=== PATIENT | female | born 1960 | race Caucasian/White ===

== ENCOUNTER 2019-07-04 14:06 | Emergency (ER) | payer OTHER ==
--- NOTE | 2019-07-04 15:15 | XRAY Report ---
Reason: left ankle injury Procedure Date: 07/04/2019 Accession Number: [id number] / [id number] Procedure: XR - Ankle 3 View LT CPT Code: Final Report FULL RESULT: EXAM: LEFT ANKLE RADIOGRAPHY EXAM DATE: 07/04/2019 02:44 PM. CLINICAL HISTORY: Left ankle injury. Fell Friday the 02 of July and can not bear weight on left foot/ ankle swelling pain and discoloration. COMPARISON: None. TECHNIQUE: 3 views. FINDINGS: Bones: No fractures. Prominent heel spur. Joints: Normal. No effusion. No subluxations. The ankle mortise is normally aligned. Soft Tissues: Normal. No soft tissue swelling. IMPRESSION: 1. No fractures. 2. Prominent heel spur. RADIA
--- NOTE | 2019-07-04 15:17 | XRAY Report ---
Reason: pain Procedure Date: 07/04/2019 Accession Number: [id number] / [id number] Procedure: XR - Foot 3 View LT CPT Code: Final Report FULL RESULT: EXAM: LEFT FOOT RADIOGRAPHY EXAM DATE: 07/04/2019 02:52 PM. CLINICAL HISTORY: Pain. COMPARISON: None. TECHNIQUE: 3 views. FINDINGS: Bones: Normal. No fractures or bone lesions. Benign accessory navicular. Benign accessory cuboid. 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 No subluxations. Soft Tissues: Normal. No soft tissue swelling. IMPRESSION: 1. No acute fractures. 3. There is an accessory navicular and benign accessory cuboid. Some early arthritic changes at the first MTP joint. RADIA
[2019-07-04] MEDS ORDERED: MELOXICAM 7.5 MG TABLET PO STA (15:52)
[2019-07-04] MEDS ORDERED: oxyCODONE 5 MG TABLET PO STA (15:52)
--- NOTE | 2019-07-04 15:52 | ED Physician Documentation ---
PD HPI LOWER EXT INJURY - Stated complaint Stated Complaint: LEFT FOOT INJURY - Chief complaint Chief Complaint: Ext Problem - History obtained from History obtained from: Patient - History of Present Illness PD HPI LOW EXT INJURY LOCATION: Left, Foot Where injury occurred: Home Timing - onset: How many days ago (2) Timing - duration: Days (2) Timing - details: Gradual onset Pain level max: 8 Pain level now: 6 Improved by: Rest Worsened by: Moving, Palpating Associated symptoms: Swelling, Discolored (Bruising). No: Weakness, Numbness, Tingling Recently seen: Not recently seen - Additional information Additional information: Patient states that she struck her left foot 2 days ago on the wall. Pain with walking. Worse with movement and better with rest Review of Systems Constitutional: denies: Fever, Chills Nose: denies: Rhinorrhea / runny nose, Congestion Throat: denies: Sore throat Cardiac: denies: Chest pain / pressure Musculoskeletal: denies: Neck pain, Back pain Neurologic: denies: Headache PD PAST MEDICAL HISTORY - Past Medical History Past Medical History: No - Present Medications Home Medications: Ambulatory Orders Medication Instructions Recorded Confirmed Meloxicam [Mobic] 15 mg PO DAILY PRN #20 tablet 07/04/19 Oxycodone HCl/Acetaminophen 1 - 2 each PO Q6H PRN #14 tablet 07/04/19 [Percocet 5-325 mg Tablet] - Allergies Allergies/Adverse Reactions: Allergies Allergy/AdvReac Type Severity Reaction Status Date / Time Penicillins Allergy Unknown Verified 07/04/19 14:36 - Living Situation Living Situation: reports: With family Living Arrangement: reports: At home - Social History Does the pt have substance abuse?: No - Family History Family history: reports: Non contributory PD ED PE NORMAL - Vitals Vital signs reviewed: Yes - General General: Alert and oriented X 3, No acute distress - HEENT HEENT: Moist mucous membranes - Neck Neck: Supple, no meningeal sign - Derm Derm: Warm and dry - Extremities Extremities: Other (Left foot mild diffuse swelling, especially over the dorsum of the left foot. Neurovascularly intact. Diffuse tenderness over the foot. No deformity. No tenderness over the ankle or proximal tibia and fibula.) - Neuro Neuro: Alert and oriented X 3 - Psych Psych: Normal mood Results - Vitals Vitals: Vital Signs - 24 hr 07/04/19 07/04/19 14:33 16:17 Temperature 36.7 C 37.1 C Heart Rate 81 78 Respiratory 16 15 Rate Blood Pressure 134/69 H 128/71 O2 Saturation 98 98 Oxygen O2 Source Room air - Rads (name of study) L foot xray Radiology: Prelim report reviewed, EMP read contemporaneously, See rad report (normal) L ankle xray Radiology: Prelim report reviewed, EMP read contemporaneously, See rad report (normal) PD MEDICAL DECISION MAKING - ED course Complexity details: reviewed results, re-evaluated patient, considered differential, d/w patient ED course: 58-year-old female with a left foot sprain versus contusion. Placed in a walking boot and given crutches. No acute findings on x-ray. We will have her follow-up with her doctor for further care. Patient counseled regarding signs and symptoms for which I believe and urgent re-evaluation would be necessary. Patient with good understanding of and agreement to plan and is comfortable going home at this time This document was made in part using voice recognition software. While efforts are made to proofread this document, sound alike and grammatical errors may occur. Departure - Departure Disposition: Home, Self Care Clinical Impression: Sprain of foot, left Qualifiers: Encounter type: initial encounter Qualified Code(s): S93.602A - Unspecified sprain of left foot, initial encounter Condition: Good Instructions: ED Sprain Foot Follow-Up: HUSAM GASPAR MD [Primary Care Provider] - Within 1 week Prescriptions: Meloxicam [Mobic] 15 mg PO DAILY PRN #20 tablet PRN Reason: pain Oxycodone HCl/Acetaminophen [Percocet 5-325 mg Tablet] 1 - 2 each PO Q6H PRN #14 tablet PRN Reason: pain Comments: Return if you worsen. You may bear weight as tolerated. There is no fracture seen on x-ray today, you should have a repeat x-ray in 1 week if you are still having symptoms. There may be a small fracture at the base of the second metatarsal, that this may be an old injury or artifact Do not drink alcohol or drive while on narcotic pain medicine. Note that many narcotic pain relievers also contain tylenol/acetaminophen. Please ensure that your total dose of acetaminophen from all sources does not exceed 3 grams (3000mg) per day. You may constipated on this medication, take a stool softener such as "Colace" twice a day while you are on it. Also recommend a [id number] laxative such as senna or MiraLAX any day that you do not have a bowel movement. If you received narcotic pain medication in the emergency department, do not drive or operate machinery for the next 24 hours. Discharge Date/Time: 07/04/19 16:17
[2019-07-04 16:17] VITALS: BP 128/71
== END 2019-07-04 16:17 | disposition home or self-care (01) ==
LOC: ED 14:06
DX: S93.602A Unspecified sprain of left foot, initial encounter (principal); W22.01XA Walked into wall, initial encounter; W18.30XA Fall on same level, unspecified, initial encounter; Y92.009 Unspecified place in unspecified non-institutional (private) residence as the place of occurrence of the external cause
CPT/HCPCS: 73610; 73630; 99283; 99284; A9270